=== PATIENT | female | born 1965 | race Caucasian/White ===

== ENCOUNTER 2020-07-16 12:49 | Emergency (ER) | payer BC ==
[~2020-07-16 12:49] MED LIST: IBUPROFEN600 MG PO
[2020-07-16] MEDS ORDERED: IBUPROFEN600 MG PO (13:49)
== END 2020-07-16 13:53 | disposition home or self-care (01) ==
LOC: ER1 12:49
DX: S63.501A Unspecified sprain of right wrist, initial encounter (principal); Z90.710 Acquired absence of both cervix and uterus; X50.0XXA Overexertion from strenuous movement or load, initial encounter; Y92.69 Other specified industrial and construction area as the place of occurrence of the external cause; Y99.0 Civilian activity done for income or pay
CPT/HCPCS: 29125; 73110; 99283

== ENCOUNTER → 2020-11-03 | Outpatient (CLI) | payer BC | LOC: EXRD 10-30 09:00 | DX: R10.11 Right upper quadrant pain (principal); R10.13 Epigastric pain | CPT/HCPCS: 76705 ==

== ENCOUNTER → 2021-12-09 | Outpatient (CLI) | payer BC | LOC: MAMO 08:00 | DX: Z12.31 Encounter for screening mammogram for malignant neoplasm of breast (principal) | CPT/HCPCS: 77063; 77067 ==